=== PATIENT | female | born 1995 | race Caucasian/White ===

== ENCOUNTER → 2018-01-14 | Outpatient (CLI) | payer BC ==
[~2018-01-14] MED LIST: ABILIFY5 MG PO; BUSPIRONE HCL7.5 MG PO; CAMRESE1 TAB PO; CYMBALTA 60MG60 MG PO; DESYREL 100MG100 MG PO; FOLIC ACID 11 MG/TA1 PO; XANAX 0.5MG0.5 MG PO; ZOLOFT 50MG50 MG PO
== END ==
LOC: LDRO 16:26
DX: Z04.41 Encounter for examination and observation following alleged adult rape (principal)
CPT/HCPCS: J0696

== ENCOUNTER → 2018-01-14 | Outpatient (REF) | LOC: LDRO 16:31 | DX: Z04.41 Encounter for examination and observation following alleged adult rape (principal) ==

== ENCOUNTER 2021-09-26 22:22 | Emergency (ER) | payer BC ==
[~2021-09-26] VITALS: Ht 165.1 cm; Wt 56.8 kg
[2021-09-26 22:25] VITALS: TEMP 97.4
[2021-09-27 00:01] VITALS: BP 122/78; PULSE 70
== END 2021-09-27 00:01 | disposition home or self-care (01) ==
LOC: COL.ER 22:22
DX: S56.911A Strain of unspecified muscles, fascia and tendons at forearm level, right arm, initial encounter (principal); V47.5XXA Car driver injured in collision with fixed or stationary object in traffic accident, initial encounter